=== PATIENT | female | born 1985 ===

== ENCOUNTER 2017-06-10 23:32 | Emergency (ER) | payer SELFPAY ==
[~2017-06-10] VITALS: Ht 162.6 cm; Wt 58.5 kg
[2017-06-10 23:35] VITALS: Ht 162.6 cm; Wt 58.5 kg
== END 2017-06-11 01:07 | disposition left against medical advice (07) ==
LOC: FTE 23:32
DX: Z53.21 Procedure and treatment not carried out due to patient leaving prior to being seen by health care provider (principal)